=== PATIENT | female | born 1975 | race Caucasian/White ===

== ENCOUNTER → 2018-05-29 | Outpatient (CLI) | payer OTHER ==
[2018-06-01 09:18] LABS: HPV 16 Positive (Negative); HPV 18 Negative (Negative); HPV OTHER HR TYPES Negative (Negative)
== END | disposition home or self-care (01) ==
LOC: LAB SHORT 16:21 → LAB 16:21
PROVIDERS: Nurse Practitioner Women's Health
DX: Z12.4 Encounter for screening for malignant neoplasm of cervix (principal)
CPT/HCPCS: 87624; G0123

== ENCOUNTER → 2018-06-22 | Outpatient (CLI) | payer OTHER | END | disposition home or self-care (01) | LOC: PLD 13:11 → LAB SHORT 13:11 | DX: R87.810 Cervical high risk human papillomavirus (HPV) DNA test positive (principal) | CPT/HCPCS: 88305; 88341; 88342 ==

== ENCOUNTER 2022-05-24 07:32 | Day surgery (SDC) | payer OTHER ==
[~2022-05-24] VITALS: Ht 167.6 cm; Wt 89.4 kg
[~2022-05-24 07:32] MED LIST: ESTRADIOL1 MG PO; LEVOTHYROXINE200 MCG PO; MULVITA PO; PROBIOTIC1 EA13 PO; PROG100 PO; SERT50 PO
--- NOTE | 2022-05-24 08:05 | NUR ---
Patient up to Ambulate independently. Gait steady. Simeon Paws warming gown applied. Surgical site prepped with 2% Chlorhexidine cloth wipe. History, Chart, Medications and Allergies reviewed before start of procedure.Lungs clear T/O to Auscultation. Patient confirms NPO status and agrees with scheduled surgery. Pre-Op teaching done. Pt verbalizes understanding. Patient States Post-Procedure ride home has been arranged. Patient reports completing Chlorhexadine shower X2 prior to admission to hospital.
--- NOTE | 2022-05-24 08:20 | NUR ---
ASSUMED CARE OF PATIENT AND RECIEVED REPORT FROM KYM. IV STARTED FLUIDS CHARTED
--- NOTE | 2022-05-24 08:24 | NUR ---
REMOVED CONTACTS PLACED IN PURSE AND GLASSES ARE IN PURSE WELL.
--- NOTE | 2022-05-24 11:18 | NUR ---
PT ARRIVED AWAKE AND COMMUNICATING APPROPRIATELY W STAFF. PT ARRIVED ON 2L NC BUT WAS ABLE TO RESUME RM AIR ONCE IN THE STEP DOWN UNIT. PT REPORTING MILD PAIN BUT DENIES ANY NAUSEA.
--- NOTE | 2022-05-24 11:32 | NUR ---
Discharge instructions reviewed with patient. Patient verbalizes understanding. Copy given to patient to take home. SPOUSE AT BEDSIDE. PT TOLERATING PO FLUIDS. PT ABLE TO MOVE SELF IN BED. OP SITES ARE CLEAN AND INTACT W MINOR OLD DRAINAGE.
--- NOTE | 2022-05-24 11:57 | NUR ---
PT UP AT BEDSIDE GETTING DRESSED W ASSISTANCE FROM SPOUSE. PT HAS STEADY GAIT DESPITE REPORTS OF FEELING VERY SORE IN HER ABDOMEN. PT ABLE TO TAKE PAIN PILL AND EAT CRACKERS.
--- NOTE | 2022-05-24 12:00 | NUR ---
Discharge instructions reviewed with patient. Patient verbalizes understanding. Copy given to patient to take home. Dressing to procedure site clean, dry, intact with no visible drainage, swelling, erythema or bruising noted. Patient States Post-Procedure ride home has been arranged. Discharged via wheelchair to private car for ride home.
== END 2022-05-24 22:40 | disposition home or self-care (01) ==
LOC: ORSCMMR 07:32 → ORD 09:00 → ORSCMMR 22:40
PROVIDERS: Surgery
PROC: 0FT44ZZ Resection of Gallbladder, Percutaneous Endoscopic Approach (ICD-10-PCS; principal; 2022-05-24 09:00)
DX: K80.20 Calculus of gallbladder without cholecystitis without obstruction (principal); I10 Essential (primary) hypertension; K21.9 Gastro-esophageal reflux disease without esophagitis; E03.9 Hypothyroidism, unspecified; Z79.899 Other long term (current) drug therapy
CPT/HCPCS: 88304; A9270; J0690; J1100; J1170; J1885; J2250; J2405; J2704; J2795; J3010; J7120

== ENCOUNTER 2025-04-04 08:45 | Day surgery (SDC) | payer OTHER ==
[~2025-04-04] VITALS: Ht 170.2 cm; Wt 87.1 kg
[~2025-04-04 08:45] MED LIST changes: +Bupivacaine 0.5% W/EPI 1:200000 SDV 30 ML Vial ONE; +CeFAZolin Sodium 2,000 MG VIAL ONE
[2025-04-04] MEDS ORDERED: Midazolam HCl 1MG / ML 2ML Vial ONE (09:14)
[2025-04-04] MEDS ORDERED: FentaNYL Citrate 50 MCG/ML 2 ML Injection ONE (09:14)
[2025-04-04] MEDS ORDERED: EUTHYROX25 MC1 PO (09:15)
[2025-04-04] MEDS ORDERED: SYNTHROID50 MC1 PO (09:15)
[2025-04-04] MEDS ORDERED: PROGESTERONE200 M1 PO (09:16)
[2025-04-04] MEDS ORDERED: Dexamethasone Sod Phos 10 MG/ML 1ML VIAL ONE (09:16)
[2025-04-04] MEDS ORDERED: Ondansetron HCl 2 MG / ML 2ML Vial ONE (09:16)
[2025-04-04] MEDS ORDERED: ONE DAILY WOME1 EAC2 (09:17)
[2025-04-04] MEDS ORDERED: OLMESARTAN MEDOX5 MG PO (09:17)
[2025-04-04] MEDS ORDERED: MERIBIN5 MG PO (09:18)
[2025-04-04] MEDS ORDERED: MAGNESIUM OXID500 MG PO (09:18)
[2025-04-04] MEDS ORDERED: Ketorolac Tromethamine 30mg Vial ONE (09:40)
--- NOTE | 2025-04-04 10:39 | NUR ---
04/04/25 [address] Crawley PER DR WILBUR LEZAMA TO PROCEED WITH BILATERAL CONTACT LENSES IN PLACE.
--- NOTE | 2025-04-04 11:26 | NUR ---
04/04/25 1126 SJ DAWSON CONTINUES TO DENY PAIN AND NAUSEA
--- NOTE | 2025-04-04 11:42 | NUR ---
04/04/25 1142 SJ DAWSON AT BEDSIDE
[2025-04-04 12:18] VITALS: BP 115/77
== END 2025-04-04 12:15 | disposition home or self-care (01) ==
LOC: ORSCSDS 08:45
PROVIDERS: Obstetrics & Gynecology
PROC: 0UBC7ZX Excision of Cervix, Via Natural or Artificial Opening, Diagnostic (ICD-10-PCS; principal; 2025-04-04 10:15)
DX: R87.810 Cervical high risk human papillomavirus (HPV) DNA test positive (principal); R87.613 High grade squamous intraepithelial lesion on cytologic smear of cervix (HGSIL); I10 Essential (primary) hypertension; E03.9 Hypothyroidism, unspecified; F41.9 Anxiety disorder, unspecified; F32.A Depression, unspecified; K21.9 Gastro-esophageal reflux disease without esophagitis; E66.9 Obesity, unspecified; Z68.30 Body mass index [BMI] 30.0-30.9, adult; Z79.899 Other long term (current) drug therapy
CPT/HCPCS: 88305; 88342; J0690; J1100; J1885; J2250; J2405; J2704; J3010; J7120